=== PATIENT | male | born 1965 | race Caucasian/White ===

== ENCOUNTER 2022-03-06 17:09 | Inpatient (IN) | payer OTHER ==
[~2022-03-06] VITALS: Ht 175.3 cm; Wt 95.6 kg
--- NOTE | 2022-03-06 22:05 | NUR ---
pt BROUGHT TO CCU FROM ED, pt ABLE TO MOVE SELF TO BED FROM STRETCHER. pt IMPULSIVE, ASSISTED TO USE URINAL. 650ML LIGHT YELLOW URINE. VITALS DONE. BED ALARM ON. FAMILY AT BEDSIDE.
--- NOTE | 2022-03-06 22:30 | NUR ---
2150 PATIENT ARRIVED. INITAL VS AND ADMISSION STARTED BY FLOMORRIS RN. PATIENT ATTEMPTED TO EXIT THE BED AND STAFF ALERTED BY BED ALARM. PATIENT IS ANXIOUS TO VOID. ASSISTED PATIENT TO SIT AT THE EDGE OF THE BED AND USE URNAL. PATIENT'S HR UP TO 130'S WITH ACTIVITY. LARGE VOID OF DILUTE URINE NOTED. PATIENT DENIED PAIN. ORIENTED X4, REMEMBERS BEING TOLD HE HAD A SEIZURE BUT NOT ANY THING DIRECTLY BEFORE OR AFTER THE SEIZURE. PATIENT REPORTS HIS MOUTH IS LESS SWOLLEN THAN IN ED AND IT APPEARS NORMAL WITHOUT BASELINE BEING KNOWN. PATIENT VS STABLE. TOLERATING ROOM AIR, LUNG SOUNDS ARE CLEAR. ABD IS SLGIHTLY DISTENDED PATIENT DENIES GI CONCERNS. SKIN GROSSLY INTACT, PATIENT IS DIAPHORETIC. ORAL TEMP WNL. PATIENT REPORTS SMOKING HALF PACK CIG A DAY, DENIES NICOTINE PATCH. PATIENT DENIES DRINKING REGULARLY OR OTHER DRUG USE.
--- NOTE | 2022-03-06 23:00 | NUR ---
PATIENT HAS VISITORS IN, BROTHER AND SISTER IN-LAW. PATIENT MOVING FREQUENTLY IN THE BED AND CONTINUES TO BE DIAPHORETIC. IV SITE IN LEFT AC PULLED OR FELL OUT DUE TO DRESSING FAILURE. IV SITE ON RIGHT HAND RE-ENFORCED WITH TAPE. PATIENT REQUIRED A NEW SET OF CARDIAC LEADS. PO MEDS PROVIDED PER ORDER. PATIENT TOLERATED WELL. NO CONCERNS AT THIS TIME. FAMILY LEFT THEIR NUMBER FOR AN UPDATE BY MD TOMORROW. PATIENT GOT UP TO STAND AT THE BEDSIDE WITHOUT CALLING FOR ASSISTANCE. HR UP TO 140'S WHEN RN ENTER THE ROOM. IV SITE IN RIGHT HAND PULLED, PATIENT BLEEDING ON FLOOR AND HIMSELF. ASSISTED PATIENT TO VOID. APPLIED PRESSURE AND CLEANED BLOOD. GAUZE DRESSING APPLIED. STRONGLY DISCOURAGED PATIENT FROM EXITING THE BED WITHOUT CALLING. WARNED OF HIGH FALL RISK AND REQUEST PATIENT VERBALIZE UNDERSTANDING, PATIENT DOES. BED ALARM ACTIVE. FAMILY LEAVING FOR THE NIGHT.
--- NOTE | 2022-03-07 00:15 | NUR ---
LABS DRAWN FROM NEW IV START. PATIENT TOLERATED WELL. PATIENT CONTINUES TO BE IMPULSIVE AND NOT FOLLOW INSTRUCTIONS WELL. ASSISTED PATIENT TO USE THE URNAL IN BED. PATIENT HAVING FREQUENT LARGE VOIDS.
--- NOTE | 2022-03-07 01:36 | NUR ---
CALLED MD WITH LAB RESULTS. NEW ORDERS FOR 1200 ML D5W OVER 4 HOURS. AFTER INFUSION DRAW LABS.
--- NOTE | 2022-03-07 02:43 | NUR ---
PATIENT VOIDED IN URNAL WHICH THEN SPILT ON THE GROUND AND BEDSIDE TABLE. PATIENT DID NOT APPEAR AWARE OF THIS. ALSO URINE IN THE PATIENT'S BED. PATIENT CONTINUES TO BE IMPULSIVE AND DIAPHROETIC. ROLLING FROM ONE SIDE OF THE BED TO THE OTHER FREQUENTLY. CARDIAC LEAD REPLACED. VS STABLE. HR 80-90'S AT REST. UP TO 120'S WITH MINIMAL ACTIVITY. IV FLUIDS INFUSING PER ORDER, SITE WNL.
--- NOTE | 2022-03-07 06:30 | NUR ---
IV FLUIDS FINISHED. PATIENT SL. IV SITE WNL. PATIENT DENIES CONCERNS. LAB DRAW FROM IV SITE. PULLS EASY. 10 ML WASTED. LAB PROCEDURE FOLLOWED. VS STABLE.
--- NOTE | 2022-03-07 07:37 | NUR ---
LAB UPDATE GIVEN TO MD TRUDY TO PUT ORDERS IN.
--- NOTE | 2022-03-07 07:45 | NUR ---
IN TO CHECK ON PT, AWAKE IN BED. ASSESSMENT DONE. DENIES PAIN OR OTHER NEEDS, SEEMS TO BE SHIVERING A BIT UNDER HIS COVERS BUT DENIES BEING COLD. IS ALERT AND ORIENTED AND ANSWERING ALL QUESITONS APPROPRIATELY, ALSO CALM AND COOPERATIVE. RESTING HR IS 80'S JUMPS UP TO 110-115 WITH SITTING UP IN BED. LUNGS CLEAR. PT ASSISTED UP TO SIT UP IN BED TO EAT BREAKFAST, CALL LIGHT IN REACH.
--- NOTE | 2022-03-07 08:21 | NUR ---
NEW IVF STARTED, 1L D5 GOING AT 999/HR. PT IS UPDATED ON PLAN OF CARE FOR THE DAY INCLUDING NEW ORDER FOR DESMOPRESSIN, D5 AND THEN RECHECK LABS AT 1200. PT IS REQUESTING SHOWER, PLAN TO DO SPONGE BATH LATER AND HE IS AGREEABLE TO THAT. HAS FINISHED HIS BREAKFAST, DENIES PAIN AT THIS TIME. REMINDED TO USE CALL LIGHT AND NOT TO GET UP WITHOUT ASSISTANCE AND HE AGREES.
--- NOTE | 2022-03-07 08:45 | NUR ---
IN TO GIVE IV DESMOPRESSIN, PT VOIDED ML INTO URINAL, NO REQUESTS.
--- NOTE | 2022-03-07 10:15 | NUR ---
PT WAS FOUND GETTING OUT OF BED, SETTING OFF BED ALARM, QUICKLY TRYING TO GET HIMSELF INTO BATHROOM WITH NEED TO HAVE BOWEL MOVEMENT, ASSISTED TO BATHROOM, SLIGHTLY UNSTEADY ON FEET. HR UP TO 115-120 WHILE UP. BACK TO BED WITH ASSIST, BED ALARM ON AND PT REMINDED TO USE CALL LIGHT AND NOT GET UP ALONE.
[2022-03-07] MEDS ORDERED: LISINOPRIL-HCT1 EACH PO (11:08)
--- NOTE | 2022-03-07 12:00 | NUR ---
PT HAS VISITORS, SITTING UP AT BEDSIDE EATING LUNCH AND TALKING WITH THEM, DENIES NEEDS AT THIS TIME, REMINDED TO NOT GET UP ALONE.
--- NOTE | 2022-03-07 13:17 | NUR ---
UPDATE TO DR FERNANDO REGARDING RECENT LABS, WILL RECHECK BMP AT 1800 AND KEEP PT ON FLUID RESTRICITON.
--- NOTE | 2022-03-07 13:56 | NUR ---
THIS PLASTIC INSTALLER IN ROOM TO FIND PATIENT NAKED IN BR. IN A MATOS TO THE TOILET, PATIENT HAD PULLED HIS MONITOR OFF AND WAS INCONTINENT OF STOOL ON FLOOR. PATIENT SAID "IT JUST SNUCK UP ON HIM." PATIENT STATES HE DIDN'T HAVE AN UPSET STOMACH, BUT DID FEEL DIZZY AND NAUSEOUS PRIOR TO GETTING OUT OF BED. NO HEADACHE. PATIENT CLEAN AND NEW BRIEF ON. RN NOTIFIED. CALL LIGHT IN REACH AND PATIENT ENCOURAGED TO CALL FOR ASSISTANCE.
--- NOTE | 2022-03-07 14:30 | NUR ---
IN TO GIVE PT HIS NICARDIPINE, HE IS LYING IN BED, SITS UP TO TAKE PILL, HR NOT GOING HIGH WITH ACTIVITY THIS AFTERNOON. DISCUSSED HOW HE HAD GOTTEN OUT OF BED WITHOUT CALLING, STATES "I DIDN'T HAVE TIME", PT WAS FOUND WITH INC STOOL ON FLOOR IN ROOM AND IN BATHROOM, CLEANED UP BY SEALING AND CANCELING MACHINE OPERATOR. PLAN OF CARE DISCUSSED WITH PT INCLUDING SODIUM LEVEL AND PLAN TO RECHECK LABS THIS EVENING, PT REMINDED OF FLUID RESTRICTIONS, QUESTIONS ANSWERED AND PT NOW LYING BACK DOWN TO TRY TO SLEEP, BED ALARM ON AND CALL LIGHT IN REACH.
--- NOTE | 2022-03-07 15:40 | NUR ---
MED REC COMPLETE
--- NOTE | 2022-03-07 15:48 | NUR ---
PT RESTING IN BED WITH EYES CLOSED, HR 70'S, RESP EVEN/UNLABORED.
--- NOTE | 2022-03-07 19:00 | NUR ---
DR FERNANDO NOTIFIED OF RECENT LABS, WILL BE PUTTING INORDERS.
--- NOTE | 2022-03-07 20:00 | NUR ---
IV FLUIDS STARTED PER ORDER. IV FLUSHED EASY AND REENFORCED WITH COBAN. PATIENT MOVING FROM SIDE TO SIDE IN BED OFTER. CARDIAC LEADS DISPLACED. REAPPLIED AND REENFORCED. PATIENT DENIED NEEDS. URNAL EMPTIED.
--- NOTE | 2022-03-07 21:15 | NUR ---
VS STBALE. PATIENT ASSISTED TO CHANGED ATTENDS AND NEW CHUCKS PLACED ON BED. PATIENT STANDS EASILY AND IS SLGIHTLY UNSTEADY. OFFERED PATIENT AMBULATING IN HALLWAY WITH FWW, PATIENT DECLINED. SCHEDULED MEDS PROVIDED. PATIENT IS MORE ALERT AND COGNITIVLY AWARE THAN LAST NIGHT ON ADMISSION. DISCUSSED NEED TO CALL FOR ASSIST. BED ALARM ACTIVE. PATIENT AGEES TO CALL. 100 MLS LEFT FOR FLUID RESTRICTION, PATIENT AWARE. NO CONCERNS. WARM BLANKET PROVIDED.
--- NOTE | 2022-03-07 22:45 | NUR ---
PATIENT UP TO VOID. ASSISTED BY ERIC MORRIS. THIS RN IN TO ASSESS VS AND DRAW LABS. IV STOPPED FOR 3-5 MINS. IV SITE FLUSHED WITH 20 MLS OF NS AND 10MLS BLOOD WASTED. LABS COLLECTED AND LABELED PER PROTOCOL. IV FLUSHES AND DRAWS BLOOD EASILY. IV FLUIDS RESUMED. PATIENT DENIED FURTHER NEEDS.
--- NOTE | 2022-03-08 01:00 | NUR ---
CALLED AND SPOKE TO ERIC MORRIS. ORDERS FOR REPEAT LABS RECIEVED AND INPUT BY ERIC MORRIS. LABS RESULTS QUESTIONABLE DUE TO CURRENT TREATMENT. LAB IN FOR STRAIGHT STICK ON RIGHT ARM. IV FLUIDS INFUSING IN LEFT.
--- NOTE | 2022-03-08 02:00 | NUR ---
DISCUSSED LAB RESULTS WITH . IV FLUIDS STOPPED AND ONE TIME INFUSION OF 400 MLS D5 ORDERED TO INFUSE OVER 3 HOURS. VERIFIED VIA REPEAT BACK. IV FLUIDS STARTED AND PATIENT ALERT AND RESTING IN BED. DENIES ANY NEEDS OR CONCERNS.
--- NOTE | 2022-03-08 07:15 | NUR ---
BED ALARM GOING OFF, PT SITTING UP AT THE SIDE OF THE BED AWAKE AND ALERT, HOLDING HIS ARM, BLOOD NOTED, IV CATHETER NOTED TO BE AT THE BEDSIDE. GAUZE APPLIED TO DC'D IV SITE AND COBAN PLACED OVER. CLEAN SHEETS PROVIDED, PT PROVIDED WITH HIS SHORTS TO PUT ON. PT STATED THAT HE WAS TURNING IN BED AND HAD DISLODGED HIS IV. PT ASKING WHEN HE CAN GO HOME AND IS WILLING TO WAIT TO BE SEEN BY THE PHYSICIAN. PT STATES HE WILL TAKE A NAP AND IS NOW LAYING IN BED. BED ALARM ON, PT REPORTS NO NEEDS, CALL LIGHT IN REACH, WILL CONTINUE PLAN OF CARE.
--- NOTE | 2022-03-08 07:30 | NUR ---
REPORT RECIEVED. PATIENT IS AWAKE IN ROOM.
--- NOTE | 2022-03-08 08:15 | NUR ---
UP TO BR TO VOID. IS STABLE ON FEET. THEN SITTING AT BED TO EAT BREKFAST.
--- NOTE | 2022-03-08 09:00 | NUR ---
ASSESSMENT DONE. PATIENT IS ASKING ABOUT GOING HOME. TALKED WITH PATIENT ABOUT THIS. PATIENT DENIES PAIN. IS ABLE TO ANSWERE W/O DELAY, FOLLOW COMMANDS. HAS BEEN UP IN ROOM,IS STABLE ON FEET. WILL HOLD ON PUTTING NEW IV AT THIS TIME PATIENT MIGHT BE DISCHARGED TODAY. PATIENT MOTHER IN ROOM.
--- NOTE | 2022-03-08 09:30 | NUR ---
WHEN UP IN ROOM, HR TO 130. DENIES DIZZINESS.
--- NOTE | 2022-03-08 10:00 | NUR ---
AMBULATED IN HALLWAY WITH NURSE. HR TO 117. ENC PATIENT TO SLOW PACE DOWN. BACK TO ROOM.
--- NOTE | 2022-03-08 11:20 | NUR ---
DISCHARGE ORDERS RECIEVED. PATIENT HAS BEEN SITTING AT BESIDE VISITING WITH HIS MOM.
[2022-03-08] MEDS ORDERED: AMLODIPINE BESYL5 MG PO (11:31)
--- NOTE | 2022-03-08 11:55 | NUR ---
DISCHARGE INSTRUCTIONS GIVEN WITH PATIENT UNDERSTANDING.
--- NOTE | 2022-03-08 12:00 | NUR ---
DISCHARGED VIA W/C, ACCOMP BY NURSE AND PATIENT MOTHER.
== END 2022-03-08 12:00 | disposition home or self-care (01) | DRG 641 ==
LOC: ED 17:09 → CCU 21:19
PROVIDERS: ADMIT Internal Medicine; ATTEND Internal Medicine
DX: E87.1 Hypo-osmolality and hyponatremia (principal); I10 Essential (primary) hypertension; T50.2X5A Adverse effect of carbonic-anhydrase inhibitors, benzothiadiazides and other diuretics, initial encounter; T78.3XXA Angioneurotic edema, initial encounter; Z20.822 Contact with and (suspected) exposure to COVID-19; T46.4X5A Adverse effect of angiotensin-converting-enzyme inhibitors, initial encounter; Z88.0 Allergy status to penicillin; Z88.8 Allergy status to other drugs, medicaments and biological substances; Z79.899 Other long term (current) drug therapy
CPT/HCPCS: 36415; 70450; 80048; 80053; 81001; 82570; 82977; 83735; 83930; 83935; 84300; 84443; 84550; 85025; 86850; 86900; 86901; 96374; 96375; 99285-25; A9270; C9803; G0480; J0171; J1200; J1650; J2060; J2597; J2930; J7040; J7060; J7070; J7131; U0003